=== PATIENT | female | born 1990 | race Caucasian/White ===

== ENCOUNTER 2024-08-09 20:43 | Emergency (ER) | payer BC, SELFPAY ==
[2024-08-09 20:43] VITALS: BMI 21.6
[2024-08-09 20:46] VITALS: BP 113/75
[2024-08-09 21:19] LABS: % Basophils 0.4 % (0-2); % Eosinophils 1.2 % (0-6); % Immature Granulocytes 0.5 % (0-0.5); % Lymphocytes 15.8 % (20.5-51.1); % Monocytes 7.1 % (1.7-9.3); Absolute Eosinophils 0.1 10^3/uL (0-0.7); Absolute Immature Granulocytes 0.1 10^3/uL (0-0.05); Absolute Lymphocytes 1.8 10^3/uL (1.2-3.4); Absolute Monocytes 0.8 10^3/uL (0.1-0.6); Absolute Neutrophils 8.4 10^3/uL (1.4-6.5); Hematocrit 36.7 % (37.0-47.0); Hemoglobin 11.7 g/dL (12.0-16.0); Mean Corp Hgb Conc. 31.9 g/dL (33.0-37.0); Mean Corpuscular Hgb 28.8 pg (27.0-31.0); Mean Corpuscular Volume 90.4 fL (81.0-99.0); Mean Platelet Volume 10.3 fL (7.4-10.4); Nucleated Red Blood Cells % 0 %; Platelet Count 230 10^3/uL (130-400); Red Blood Cell Count 4.06 10^6/uL (4.20-5.40); Red Cell Dist. Width 15.2 % (11.5-14.5); White Blood Cell Count 11.2 10^3/uL (4.8-10.8)
[2024-08-09 21:29] LABS: HCG, Serum Qualitative Screen Negative
--- NOTE | 2024-08-09 21:34 | ED.GENMED ---
History of Present Illness
General
Chief Complaint: Abdominal Pain
Source: patient
Exam Limitations: none
Time Seen by Provider: 08/09/24 21:32
Nursing documentation reviewed up to this point in time: agreed with
History of Present Illness
History of Present Illness:
34-year-old female with history of MS, uncomplicated vaginal delivery 07/17/24, colitis presents for 3 days of RLQ pain that is constant and intermittently shoots across abdomen to left side. She felt chilled today and temp was 101.6. Lowry nausea but
did not vomit. No constipation or UTI symptoms
She is breast feeding and formula feeding.
Past History
Past History
ED Past Medical History: Other (Multiple sclerosis, colitis)
Social History
Tobacco: Non-smoker
Alcohol: None
Personal:
Living: with family
Review of Systems
Review of Systems
Allergies reviewed?: Yes
All Other Systems: ROS reviewed and negative except as documented in HPI and ROS
Constitutional: Reports fever and chills
ABD/GI: Reports abdominal pain and nausea; Denies vomiting, diarrhea, bloody stools or black stools
: Denies dysuria, frequency or difficulty voiding
Musculoskeletal: Reports no symptoms
Skin: Reports no symptoms
Neurological: Reports no symptoms
Phy Exam
Physical Exam
Physical Exam:
GENERAL: No acute distress. A&Ox3.
CONSTITUTIONAL: Afebrile.
EYES: clear, conjunctivae normal
ENMT: moist mucus membranes, Pharynx nl
RESPIRATORY: Regular respirations, nonlabored, lungs clear.
CARDIOVASCULAR: Regular rate and rhythm, no murmurs, no rubs.
GI: Soft, right lower quadrant tenderness, no guarding, normal BS
MUSCULOSKELETAL: Moves with ease. Well perfused.
SKIN: Warm, dry, pink
PSYCH: Normal mood and affect. Well kept, interactive and appropriate
NEUROLOGIC: Awake, alert and oriented. No focal neurological deficits
Sepsis
Sepsis Screening
Sepsis Assessment: Sepsis Ruled Out
Sepsis Screen
Sepsis Screen: Sepsis Ruled Out
Date: 08/10/24
Time: 00:56
Course
Orders/Labs/Results
Orders:
Orders
08/09/24 21:11
Test Result ONCE
08/09/24 21:12
Complete Blood Count/With Diff Urgent
Comprehensive Metabolic Panel Urgent
HCG, Serum Qualitative Screen Urgent
Lipase Urgent
08/09/24 21:44
CT Abd/Pel (IV only)-DH only Urgent
Comment:
Reason For Exam: RLQ pain
08/09/24 23:05
Amoxicillin 875 mg/Clav 125 mg [Augmentin 875 mg/125 mg] 1 tablet PO NOW STA
Abnormal Lab Results
08/09/24
21:12
WBC 11.2 H 10^3/uL
(4.8-10.8)
RBC 4.06 L 10^6/uL
(4.20-5.40)
Hgb 11.7 L g/dL
(12.0-16.0)
Hct 36.7 L %
(37.0-47.0)
MCHC 31.9 L g/dL
(33.0-37.0)
RDW 15.2 H %
(11.5-14.5)
Abs Immat Gran (auto) 0.1 H 10^3/uL
(0-0.05)
Absolute Neuts (auto) 8.4 H 10^3/uL
(1.4-6.5)
Absolute Monos (auto) 0.8 H 10^3/uL
(0.1-0.6)
Lymphocytes % 15.8 L %
(20.5-51.1)
Glucose 115 H mg/dl
(70-99)
08/09/24 21:12
08/09/24 21:12
Vital Signs
Initial and Last Documented VS:
Initial Vital Signs
Temp Pulse Resp BP Pulse Ox
97.7 F 102 18 113/75 97
08/09/24 20:46 08/09/24 20:46 08/09/24 20:46 08/09/24 20:46 08/09/24 20:46
Last Documented Vital Signs
Temp Pulse Resp BP Pulse Ox
97.7 F 86 17 92/63 98
08/09/24 20:46 08/09/24 22:55 08/09/24 22:32 08/09/24 22:55 08/09/24 22:55
MDM/Problems Addressed
Differential Diagnosis Includes:
colitis, diverticulitis
MDM/Problems Addressed:
34-year-old female with history of MS, uncomplicated vaginal delivery 07/17/24, colitis presents for 3 days of RLQ pain that is constant and intermittently shoots across abdomen to left side. She felt chilled today and temp was 101.6. Lowry nausea but
did not vomit. No constipation or UTI symptoms
She is breast feeding and formula feeding.
Afebrile, NAD
11:00 PM:
CBC: No clinically significant abnormality
CMP: Normal
hCG negative
CT abdomen pelvis with IV only contrast: Radiology report read: IMPRESSION:
There is wall thickening with extensive stranding along the ascending colon consistent with severe colitis. The appendix is not definitely visualized, however findings are felt unlikely to represent acute appendicitis.
Mild colonic stool burden.
Enlarged uterus with prominence of the mild prominence of the endometrial canal. Findings are likely related to reported recent delivery. If there is concern for retained products of conception consider dedicated pelvic ultrasound.
Patient is totally nontoxic-appearing, she is smiling and is stable for discharge
Prescription for Augmentin sent to her pharmacy
She is breast-feeding and Augmentin is deemed to be safe
*Critical Care Note
Total Time (30-74mins, 75-104mins- exclusive of procedures): Not Applicable
ED Attending Note
-
Portions of this chart may have been created with voice recognition software.� Occasional wrong word or��sound alike� substitutions may have occurred due to the inherent limitations of voice recognition software.
Discharge Plan
Departure
Patient Disposition: Home (Routine Discharge)
Date of Disposition: 08/09/24
Time of Disposition: 23:06
Patient with high blood pressure during this ER visit?: No
Condition: Good
Discharge Problem:
Colitis
Instructions: Clear liquid diet, Colitis
Prescriptions:
New
amoxicillin-pot clavulanate 875-125 mg tablet
1 tab PO BID Qty: 20 0RF
No Action
pediatric multivitamin 1 EACH tablet,chewable
2 ea PO DAILY
cholecalciferol (vitamin D3) [Vitamin D3] 4,000 UNIT capsule
4,000 unit PO DAILY
dimethyl fumarate [Tecfidera] 240 MG capsule,delayed release(DR/EC)
240 mg PO BID
Cranberry
1 tab PO DAILY
Fiber Gummies
1 tab PO DAILY
Vitamin B-12:
1 tab PO DAILY
Vitamin C
1 tab PO DAILY
norgestimate-ethinyl estradiol [Sprintec (28)] 1 TAB tablet
1 tab PO DAILY
amoxicillin-pot clavulanate 1 TABLET tablet
1 tab PO Q12 Qty: 20 0RF
Referrals:
Lizbeth Isabel MD [Active] - Next open appointment
UNKNOWN - PT DOES,NOT KNOW [Family Provider] -
Activity Restrictions/Additional Instructions:
As we discussed, you have severe colitis. I sent a prescription to your pharmacy for Augmentin to take twice a day for 10 days.
It is deemed safe to take while breast-feeding, Minor side effects may occur such as irritability or loose stools/diarrhea
Return here immediately for fever above 100.5 that is not relieved with Tylenol or ibuprofen, bloody stools, worsening pain, vomiting or feeling sicker in any way
Doctors office for visit and asked them when they want to see you for follow-up
Ibuprofen as needed for pain
Clear liquid diet for 1 or 2 days to give your bowels a rest. Drink plenty of fluids
Interventions
Interventions:
*Risk Screen - Suicide Last Done: 08/09/24 20:46
*General Assessment Last Done: 08/09/24 20:46
*Neglect/Abuse Screening Last Done: 08/09/24 20:46
*ED- Fall Risk Assessment Last Done: 08/09/24 23:22
*ED COVID-19 Vaccine History Last Done: 08/09/24 23:22
*Nursing Disposition Last Done: 08/09/24 23:20
MR-Kvcdgd-Xkyljlguzx Assessment Last Done: 08/09/24 21:18
Discharge Date and Time
Discharge Date/Time: 08/09/24 23:22
Print Language: SAO TOMEAN
[2024-08-09 21:36] LABS: ALT (SGPT) 23 U/L (0-35); AST (SGOT) 19 U/L (14-36); Albumin 3.9 g/dl (3.5-5.0); Alkaline Phosphatase 106 U/L (38-126); Blood Urea Nitrogen 13 mg/dl (7-17); Calcium 8.8 mg/dl (8.4-10.2); Carbon Dioxide 26 mmol/L (22-30); Chloride 106 mmol/L (98-107); Estimated Creatinine Clearance 86 ml/min; Glucose 115 mg/dl (70-99); Lipase 63 U/L (23-300); Potassium 4.5 mmol/L (3.5-5.1); Sodium 139 mmol/L (135-145); Total Bilirubin 0.9 mg/dl (0.2-1.3); Total Protein 6.9 g/dl (6.3-8.2); eGFR > 60.00
[2024-08-09 22:55] VITALS: BP 92/63
[2024-08-09] MEDS: AUGMENTIN 875 MG/125 MG 1 TABLET PO (23:12)
== END 2024-08-09 23:22 | disposition home or self-care (01) ==
LOC: EMR 20:43
PROVIDERS: EMERGENCY PHYSICIAN Emergency Medicine
DX: K52.9 Noninfective gastroenteritis and colitis, unspecified (principal); G35 Multiple sclerosis
CPT/HCPCS: 99284; 74177; 80053; 83690; 84703; 85025; Q9967